=== PATIENT | female | born 1960 | race Caucasian/White ===

== ENCOUNTER 2016-06-24 21:09 | Emergency (ER) | payer OTHER ==
[~2016-06-24] VITALS: Ht 162.6 cm; Wt 110.7 kg
[2016-06-24 21:38] LABS: HEMATOCRIT 39.5 % (36.0-46.0); MCH 30.8 PG (29.0-34.0); MCHC 33.4 G/DL (30.0-36.0); MCV 92.3 FL (83-99); RBC DIS.WIDTH-SD 43.9 % (39-53); RED BLOOD COUNT 4.28 M/uL (3.80-5.20); WHITE BLOOD COUNT 17.3 K/uL (4.1-10.2)
[2016-06-24 21:46] LABS: CHLORIDE 110 mEq/L (99-109); POTASSIUM 3.9 mEq/L (3.7-5.4); SODIUM 141 mEq/L (136-147)
[2016-06-24 21:48] LABS: GLUCOSE 116 mg/dL (70-99)
[2016-06-24 21:50] LABS: ANION GAP 12 MEQ/L (2-14)
[2016-06-24 21:53] LABS: UREA NITROGEN (BUN) 19 mg/dL (9-23)
[2016-06-24 21:55] LABS: GFR ESTIMATE (CALCULATED) 49 mL/min/
[2016-06-24 22:00] LABS: INFLUENZA A VIRAL ANTIGEN NEGATIVE; INFLUENZA B VIRAL ANTIGEN NEGATIVE
[2016-06-24 22:33] LABS: MEAN PLAT.VOLUME 11.8 uM^3 (9.5-12.4); PLAT.SUFFICIENCY ADEQUATE; PLATELET COUNT 237 K/uL (156-360)
[2016-06-24] MEDS ORDERED: PREDNISONE20 MG PO (23:36)
[2016-06-24] MEDS ORDERED: PROVENTIL,2.5 MG/3 M IH (23:36)
[2016-06-24] MEDS ORDERED: MOTRIN800 MG PO (23:36)
[2016-06-24] MEDS ORDERED: TAMIFLU75 MG PO (23:36)
[2016-06-25 00:15] VITALS: BP 109/63
== END 2016-06-25 00:15 | disposition home or self-care (01) ==
LOC: EME 21:09
DX: J20.9 Acute bronchitis, unspecified (principal); R51 Headache; J02.9 Acute pharyngitis, unspecified; Z90.710 Acquired absence of both cervix and uterus; Z98.84 Bariatric surgery status
CPT/HCPCS: 71020; 80048; 85027; 87502; 94644; 99281; 99285; J1885; J2930; J7512